=== PATIENT | female | born 1960 | race Two or more races ===

== ENCOUNTER → 2017-02-27 | Outpatient (CLI) | payer OTHER ==
--- NOTE | 2017-02-27 16:50 | RADRPT ---
PROCEDURE: XR Right hip and pelvis. CLINICAL INDICATION: Right hip pain and pelvic pain. TECHNIQUE: 3 views. Frontal pelvis. Frontal and lateral right hip. COMPARISON: None. FINDINGS: There is no fracture or dislocation. The soft tissues are normal. There are moderate degenerative changes of the right hip with joint space narrowing and osteophytes. The left hip is normal. There is no lytic or blastic lesion. There are metal surgical devices overlying the lower abdomen. IMPRESSION: 1. Moderate degenerative changes of the right hip. 2. Metal surgical devices overlying the lower abdomen. 3. Otherwise unremarkable frontal view of the pelvis. RPTAT: QQ .Seth Le MD, MD Date Time Electronically viewed and signed by .Seth Le MD, on 02/27/2017 16:49 .R/
--- NOTE | 2017-02-27 16:52 | RADRPT ---
PROCEDURE: XR Knees. CLINICAL INDICATION: Bilateral knee pain. TECHNIQUE: Total of eight views. Weightbearing frontal, oblique, and lateral views of the both kn ees. Patellar views of both knees. COMPARISON: No prior study is available for comparison. FINDINGS: There is no fracture or dislocation. The soft tissues are normal. There are degenerative changes with osteophytes arising from all 3 joint compartment margins. There is bilateral medial joint compartment narrowing. There is no lytic or blastic lesion. There is no radiopaque foreign body. IMPRESSION: 1. Moderate degenerative changes of both knees. 2. No acute abnormality. RPTAT: QQ .Seth Le MD, MD Date Time Electronically viewed and signed by .Seth Le MD, on 02/27/2017 16:51 .R/
== END | disposition home or self-care (01) ==
LOC: HKI 10:04
PROVIDERS: ATTEND Orthopaedic Surgery
DX: M17.0 Bilateral primary osteoarthritis of knee (principal); E66.01 Morbid (severe) obesity due to excess calories; M25.551 Pain in right hip; R10.2 Pelvic and perineal pain; M25.751 Osteophyte, right hip
CPT/HCPCS: 73502; 73564; Z7500; G0463

== ENCOUNTER → 2017-06-28 | Outpatient (CLI) | payer OTHER ==
--- NOTE | 2017-06-28 10:36 | PN ---
Date/Time of Note Date/Time of Note DATE: 06/28/17 TIME: 10:32 Outpatient Progress Note HPI Shahida presents today for a follow-up evaluation on her right knee. She is here today for a Monovisc injection to the right knee. She has been also having pain in regards to her bilateral shoulders. She has been trying to obtain authorization without any help from her primary care doctor. She does have some nightly symptoms to her right shoulders. Additionally she is complaining of her knee buckling and giving way. She denies any new fall or trauma. She presents today for a right knee Monovisc injection. Physical Exam On exam today, she is alert and oriented 4, and in no acute distress. She is ambulatory without any assistive devices. She is morbidly obese. Exam of the right knee demonstrates no effusion. Her range of motion is adequate, 0120. She does have a valgus deformity. There is no erythema, warmth, pus, or drainage noted. There is no significant soft tissue swelling. Compartments are soft. She is neurovascularly intact distally. Assessment/Plan Assessment: Right knee osteoarthritis Plan: The patient underwent a Monovisc injection to her right knee today. In regards to her bilateral shoulders, we will try to help her obtain authorization to see a shoulder specialist for an evaluation. Dr. Peng who is in our office, is a shoulder expert, combined the appropriate treatment necessary. In regards to her right knee, she should apply ice, take over-the- counter anti-inflammatories and modify her activity. We will see her back in regards to her right knee on an as-needed basis. We will see her for her shoulders after we obtain authorization. Procedure Note: The procedure was fully explained to the patient and informed consent was obtained prior to the start of the procedure. The area is prepped and draped in sterile fashion using Betadine. Ethyl chloride was used to anesthetize the superolateral aspect of the right knee, and 4 cc of Monovisc was injected intra-articularly. A sterile dressing was applied. The patient tolerated the procedure well. All questions and concerns were addressed at the time of procedure. TYREL ARANDA PA-C Jun 28, 2017 10:36
== END | disposition home or self-care (01) ==
LOC: HKI 09:58
PROVIDERS: ATTEND Orthopaedic Surgery
DX: M17.11 Unilateral primary osteoarthritis, right knee (principal)
CPT/HCPCS: 20610; J7327

== ENCOUNTER → 2017-07-02 | Outpatient (CLI) | payer OTHER ==
--- NOTE | 2017-07-02 18:09 | RADRPT ---
PROCEDURE: XR Bilateral Shoulder. CLINICAL INDICATION: Bilateral shoulder pain. TECHNIQUE: Three views of each shoulder for a total of six views. Frontal internal rotation, fron kadi external rotation, and oblique. COMPARISON: No prior study is available for comparison. FINDINGS: There are degenerative changes of the right glenohumeral joint with osteophytes noted. There is narr owing of the space between the superior articular surface of the glenoid and the acromion which may indicate chronic right rotator cuff tear. The left shoulder appears normal. The soft tissues are normal. The articular surfaces are otherwise. There is no lytic or blastic lesion. There is no radiopaque foreign body. IMPRESSION: 1. Degenerative changes of the right glenohumeral joint and probable chronic right rotator cuff tea r. Correlation with MRI advised. 2. Normal images of the left shoulder. RPTAT: QQ .Seth Le MD, Date Time Electronically viewed and signed by .Seth Le MD, on 07/02/2017 18:08 .R/
--- NOTE | 2017-07-03 06:37 | HKNOTE ---
DATE OF SERVICE: 07/02/2017 CHIEF COMPLAINT: Bilateral shoulder pain. HISTORY OF PRESENT ILLNESS: This is a 57-year-old female, who states that she fell onto the right shoulder approximately 5 months ago. She has been having increasing pain in the right shoulder. Over the last several weeks, she has had increasing pain in the left shoulder. The pain is sharp on palpable shoulders. It interferes with her activities of daily living. She has difficulty sleeping due to the pain in the shoulders. She denies any numbness or tingling. She has noticed a slight improvement of the pain. She has been taking [id number] medications for pain control. She has no other complaints. PHYSICAL EXAMINATION: GENERAL: No acute distress, alert and oriented x4, cooperative during examination. CERVICAL SPINE: Nontender to palpation, 50 degrees of flexion, 50 degrees of extension, 35 degrees of right and left rotation. Negative Spurling's. RIGHT SHOULDER: Tender over the anterior deltoid, nontender over the AC joint and clavicle, 180 degrees of abduction, 170 degrees of forward flexion, 40 degrees of extension, 90 degrees of external rotation, 90 degrees of internal rotation. Negative belly press, negative lift-off test, positive Farris', positive Neer's test, 5/5 strength of deltoid. LEFT SHOULDER: Tender over the anterior deltoid, nontender over the AC joint and clavicle, 180 degrees of abduction, 180 degrees of forward flexion, 30 degrees of extension, 90 degrees of internal rotation, 90 degrees of external rotation, positive Farris', positive Neer's, negative belly press, negative lift- off, negative horn blower's. IMAGING: X-rays of bilateral shoulders: Minimal degenerative joint disease of the AC joint. No glenohumeral degenerative joint disease seen. No fracture or dislocations. IMPRESSION: A 57-year-old female with bilateral shoulder pain. PLAN: We will request authorization for bilateral shoulder MRIs. We will also request authorization for bilateral shoulder physical therapy. She will return in 6 weeks. Dictated By: Alfredo Rajput MD /anali/aliyah /Document#: [id number]
== END | disposition home or self-care (01) ==
LOC: HKI 15:34
PROVIDERS: ATTEND Orthopaedic Surgery Adult Reconstructive Orthopaedic Surgery
DX: M25.512 Pain in left shoulder (principal); M25.511 Pain in right shoulder
CPT/HCPCS: 73030; Z7500; G0463

== ENCOUNTER → 2018-12-04 | Outpatient (CLI) | payer OTHER ==
--- NOTE | 2018-12-04 12:52 | CONS ---
Consult Date/Type/Reason Admit Date/Time Initial Consult Date Date/Time of Note DATE: 12/04/18 TIME: 12:50 Subjective 58-year-old female returning to clinic today for right knee corticosteroid injection. She also has bilateral rotator cuff tears. She has been authorized for subacromial steroid injections as well. These will be given at her next clinic appointment to avoid 3 steroid injections in one visit as previously planned. Patient states that she has begun to lose some weight already and is very pleased with how she feels. Objective Exam General: Awake, alert, in no acute distress, pleasant and cooperative Heart: regular rhythm Lungs: breathing comfortably, no tachypnea or dyspnea MUSCULOSKELETAL: Right lower extremity: Skin intact with no erythema. Sensation intact to light touch in a sural, saphenous, deep peroneal, superficial peroneal, medial and lateral plantar nerve distribution. Motor is intact, patient able to dorsiflex and plantarflex ankle and extend and flex great toe. Dorsalis Pedis pulse +2, Brisk capillary refill. Compartments are soft. Calves non-tender to palpation bilaterally. Assessment/Plan Hospital Course (Demo Recall) 58-year-old female with osteoarthritis of the right knee. She will receive a right knee steroid injection today. She will follow-up in a week to 2 weeks for bilateral subacromial steroid injections. At that time physical therapy for bilateral rotator cuff tears as well as knee arthritis will be started. Plan: Right knee steroid injection Follow-up 1-2 weeks for bilateral subacromial steroid injections and to begin PT. Continue with weight loss Assessment/Plan (Daily) Right knee steroid injection procedure: Risks and benefits of steroid injection reviewed with patient. The risks include infection, failure, pain, swelling, nerve/tendon/ligament damage. The patient verbalized understanding and verbal consent was obtained prior to procedure. The right knee was prepped in a sterile fashion with alcohol and betadine the site of injection was confirmed. Anterior medial approach was used. The skin and capsule was anesthetized with 3mL 1% lidocaine. The right knee was injected with 2mL 1% lidocaine, 2mL 0.25% bupivacaine, 40mg Depo-Medrol. Injection flowed freely. Good hemostasis was achieved and no complications noted. The patient tolerated the procedure well. Limit activity and ice for 24-48 hours BELLE WESTBROOK MD Dec 04, 2018 12:52
== END | disposition home or self-care (01) ==
LOC: HKI 12:05
PROVIDERS: ATTEND Orthopaedic Surgery Adult Reconstructive Orthopaedic Surgery
DX: M17.11 Unilateral primary osteoarthritis, right knee (principal)
CPT/HCPCS: 20610; J1030; Z7500; Z7610; G0463

== ENCOUNTER → 2018-12-11 | Outpatient (CLI) | payer OTHER ==
--- NOTE | 2018-12-11 13:24 | CONS ---
Consult Date/Type/Reason Admit Date/Time Initial Consult Date Date/Time of Note DATE: 12/11/18 TIME: 13:21 Subjective This is a 58-year-old female who returns to clinic today for bilateral subacromial steroid injections. She previously received a right knee steroid injection the other week. She states that injection has helped her knee significantly. Her bilateral subacromial space injections were delayed until today to avoid 3 steroid injections in one visit. She has known rotator cuff tear on the right and symptom and exam robles has rotator cuff tendinitis versus possible tear on the left. these were atraumatic. Objective Vitals Weight: 230 pounds Height: 5 foot 3 inches Temperature: 90 point Heart Rate: 632 Blood Pressure: 139/80 Respiratory Rate: 12 Exam General: Awake, alert, in no acute distress, pleasant and cooperative Heart: regular rhythm Lungs: breathing comfortably, no tachypnea or dyspnea MUSCULOSKELETAL: Bilateral upper extremity: Skin intact Sensation intact to light touch in a median, ulnar, radial, and axillary distribution. Motor is intact in a median, ulnar, radial, anterior interosseous, and posterior interosseous nerve distribution. Radial and ulnar artery are +2. Wrist extension and flexion are intact. Compartments are soft. Assessment/Plan Hospital Course (Demo Recall) 58-year-old female with known osteoarthritis the right knee and distal hamstring tendinitis as well as right degenerative rotator cuff tear and left rotator cuff tendinitis versus tear. Plan: Bilateral subacromial steroid injections Begin physical therapy for bilateral rotator cuffs as well as right knee arthritis and distal hamstring tendinitis. Follow-up in 12 weeks Assessment/Plan (Daily) Bilateral subacromial steroid injection procedure: Risks and benefits of steroid injection reviewed with patient. The risks include infection, failure, pain, swelling, nerve/tendon/ligament damage. The patient verbalized understanding and verbal consent was obtained prior to procedure. The right and left posterior shoulder was prepped in a sterile fashion with alco hol and betadine the site of injection was confirmed. Posterior approach was used. The skin and capsule was anesthetized with 3mL 1% lidocaine. The right and left subacromial space was injected with 2mL 1% lidocaine, 2mL 0.25% bupivacaine, 40mg Depo-Medrol. Injection flowed freely. Good hemostasis was achieved and no complications noted. The patient tolerated the procedure well. Limit activity and ice for 24-48 hours BELLE WESTBROOK MD Dec 11, 2018 13:24
== END | disposition home or self-care (01) ==
LOC: HKI 11:36
PROVIDERS: ATTEND Orthopaedic Surgery Adult Reconstructive Orthopaedic Surgery
DX: M17.11 Unilateral primary osteoarthritis, right knee (principal); M76.9 Unspecified enthesopathy, lower limb, excluding foot
CPT/HCPCS: 20610; Z7500; Z7610; G0463